=== PATIENT | male | born 1960 | race Caucasian/White ===

== ENCOUNTER 2021-03-04 16:28 | Emergency (ER) | payer BC ==
[2021-03-05] MEDS ORDERED: KEFLEX750 MG PO (03:15)
== END 2021-03-05 04:00 | disposition home or self-care (01) ==
LOC: ER1 16:28
DX: S61.217A Laceration without foreign body of left little finger without damage to nail, initial encounter (principal); E78.5 Hyperlipidemia, unspecified; I10 Essential (primary) hypertension; Z88.0 Allergy status to penicillin; W45.8XXA Other foreign body or object entering through skin, initial encounter; Z23 Encounter for immunization
CPT/HCPCS: 11760; 73130; 90471; 90714; 99283

== ENCOUNTER 2022-01-04 12:28 | Emergency (ER) | payer BC ==
[~2022-01-04 12:28] MED LIST: KEFLEX750 MG PO
[2022-01-04 13:00] LABS: HEMOGLOBIN 14.6 gm/dl (14.0-17.5); RED BLOOD COUNT 4.4 M/UL (4.20-5.50); WHITE BLOOD COUNT 10.7 K/UL (4.5-11.0)
[2022-01-04 13:20] LABS: BUN/CREATININE RATIO 14 (0-10)
[2022-01-04] MEDS ORDERED: HYDROCODON-ACE1 EAC4 PO (17:09)
== END 2022-01-04 17:36 | disposition home or self-care (01) ==
LOC: ER1 12:28
PROVIDERS: Emergency Medicine
DX: N13.2 Hydronephrosis with renal and ureteral calculous obstruction (principal); I10 Essential (primary) hypertension; E78.5 Hyperlipidemia, unspecified
CPT/HCPCS: 80053; 81001; 85025; 99284